=== PATIENT | female | born 1960 | race Caucasian/White ===

== ENCOUNTER 2016-10-08 08:25 | Emergency (ER) | payer OTHER ==
[~2016-10-08] VITALS: Ht 160 cm; Wt 63.5 kg
--- NOTE | 2016-10-08 08:25 | NUR ---
Patient was BIBA and taken to bed 03 via gurney per EMS.
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
[2016-10-08 08:29] VITALS: BP 155/86
--- NOTE | 2016-10-08 08:32 | NUR ---
PT. NOT GOOD HISTORIAN, UNABLE TO RECALL ANY MEDS
--- NOTE | 2016-10-08 08:56 | NUR ---
Dr. Wall evaluating patient at bedside.
--- NOTE | 2016-10-08 08:57 | NUR ---
URINE DIPSTICK RELAYED TO DR WALDROP
--- NOTE | 2016-10-08 09:13 | NUR ---
PT WENT TO CT SCAN,ACCOMPANIED BY CONTACT MANAGER.
--- NOTE | 2016-10-08 09:20 | NUR ---
Patient back from CT via [facility].
--- NOTE | 2016-10-08 09:48 | NUR ---
PT LYING ON BED COMFORTABLY;NO ACUTE DISTRESS NOTED AT THIS TIME;WILL CONTINUE TO MONITOR PT.
--- NOTE | 2016-10-08 10:26 | NUR ---
PT ATE 100% OF HER BREAKFAST.NO ACUTE DIDTRESS NOTED;WILL CONTINUE TO MONITOR PT.
--- NOTE | 2016-10-08 10:54 | NUR ---
Patient discharged with v/s stable. Written and verbal after care instructions given and explained. Patient alert, oriented and verbalized understanding of instructions. Ambulatory with steady gait. All questions addressed prior to discharge. ID band removed. Patient advised to follow up with PMD. Rx of NORCO AND AUGMENTIN given. Patient educated on indication of medication including possible reaction and side effects. Opportunity to ask questions provided and answered.REFERRAL PAPERS GIVEN TO PT.ADVISED PT TO TAKE AUGMENTIN W/FOOD AND TAKE IT RELIGIOUSLY.
[2016-10-08 10:56] VITALS: BP 142/82
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
--- NOTE | 2016-10-08 11:51 | NUR ---
PT SAFELY ESCORTED TO LOBBY BY CORNELIA PATTERSON.PT WAS PICKED UP BY DAUGHTER CRYSTAL.PT IS IN STABLE CONDITION UPON DISCHARGED.
== END 2016-10-08 10:54 | disposition home or self-care (01) ==
LOC: MED 08:26
DX: S02.31XA Fracture of orbital floor, right side, initial encounter for closed fracture (principal); S05.31XA Ocular laceration without prolapse or loss of intraocular tissue, right eye, initial encounter; F20.9 Schizophrenia, unspecified; Y04.2XXA Assault by strike against or bumped into by another person, initial encounter; Y93.89 Activity, other specified; Y92.89 Other specified places as the place of occurrence of the external cause; Y99.8 Other external cause status; Z88.0 Allergy status to penicillin

== ENCOUNTER 2017-10-07 08:22 | Emergency (ER) | payer OTHER ==
[~2017-10-07] VITALS: Ht 170.2 cm; Wt 59.0 kg
--- NOTE | 2017-10-07 08:23 | NUR ---
PT BIBA AMBULANCE
[2017-10-07 08:24] VITALS: BP 141/87
--- NOTE | 2017-10-07 08:25 | NUR ---
PT PLACED IN BED 3
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
--- NOTE | 2017-10-07 08:46 | NUR ---
DR BUSTAMANTE EVALUATING AAO PT AT BEDSIDE
[2017-10-07] MEDS ORDERED: NACL 0.9% 1,000 ML IV SCH ×2 (09:08→11:08)
[2017-10-07] MEDS ORDERED: MORPHINE SULFATE 4 MG/ML SYR IVP ONE ×3 (09:10→11:00)
[2017-10-07] MEDS ORDERED: ONDANSETRON 4 MG/2 ML VIAL IVP ONE (09:10)
--- NOTE | 2017-10-07 09:15 | NUR ---
PT TAKEN FOR XRAY
--- NOTE | 2017-10-07 09:17 | NUR ---
[facility]
[2017-10-07 09:36] LABS: RED BLOOD CELL COUNT(AUTO) 3.73 MIL/uL (4.20-5.40); WHITE BLOOD COUNT (AUTO) 7.2 K/uL (4.8-10.8)
[2017-10-07 09:37] LABS: HEMATOCRIT 32.2 % (36-48); HEMOGLOBIN 10.6 g/dL (12.0-16.0); LYMPHOCYTES % (AUTO) 25.9 % (20.5-51.1); MEAN CORPUSCULAR HEMOGLOBIN 28 pg (27-31); MEAN CORPUSCULAR HGB CONC 33 g/dL (33-37); MEAN CORPUSCULAR VOLUME 86 fL (80-94); NEUTROPHILS % (AUTO) 63.1 % (42.2-75.2); PLATELET COUNT (AUTO) 352 K/uL (140-450); RED CELL DISTRIBUTION WIDTH 16.1 % (11.6-13.7)
[2017-10-07 09:38] LABS: BASOPHILS % (AUTO) 0.7 % (0.0-2.0); EOSINOPHILS # (AUTO) 0.1 K/uL (0-0.4); EOSINOPHILS % (AUTO) 1.7 % (0.0-4.0); LYMPHOCYTES # (AUTO) 1.9 K/uL (2.5-16.5); MONOCYTES # (AUTO) 0.6 K/uL (0.8-1.0); MONOCYTES % (AUTO) 8.6 % (1.7-9.3); NEUTROPHILS # (AUTO) 4.5 K/uL (1.8-7.7)
[2017-10-07 09:42] LABS: ANION GAP 15.7 (8-16); CARBON DIOXIDE 26.8 mmol/L (21-32); CREATININE 0.5 mg/dL (0.6-1.3); POTASSIUM 3.5 mmol/L (3.5-5.1)
--- NOTE | 2017-10-07 09:47 | NUR ---
PT RETURNED FROM XRAY, REFUSED SCANS ON ACCOUNT OF WANTING TO BE "MORE NUMB"
[2017-10-07 09:48] LABS: ALBUMIN 3.6 g/dL (3.4-5.0); TOTAL BILIRUBIN 0.3 mg/dL (0.0-1.0)
--- NOTE | 2017-10-07 09:56 | NUR ---
4MG MORPHINE GIVEN IV RT HAND 22G PER VERBAL ORDER BY DR BUSTAMANTE
--- NOTE | 2017-10-07 10:30 | NUR ---
PT TAKEN TO XRAY AGAIN
--- NOTE | 2017-10-07 10:47 | NUR ---
PT RETURNED FROM X RAY
--- NOTE | 2017-10-07 11:03 | NUR ---
TALK TO TALI AT [facility] FOR PT'S CONDITION AND POSSIBLE SURGERY
[2017-10-07] MEDS ORDERED: ONDANSETRON 4 MG/2 ML VIAL IM/IVP PRN (11:10)
[2017-10-07] MEDS ORDERED: DOCUSATE SODIUM 100 MG GELCAP PO PRN (11:10)
[2017-10-07] MEDS ORDERED: ACETAMINOPHEN 325 MG TAB PO PRN (11:10)
[2017-10-07] MEDS ORDERED: KETOROLAC 30 MG/ML VIAL IVP SCH (11:30)
--- NOTE | 2017-10-07 11:32 | NUR ---
VELARDE CATH INSERTED BY CORNELIA HEWITT, 1L URINE EMPTIED
[2017-10-07 11:40] LABS: PROTHROMBIN TIME 10.2 secs (10.8-13.4)
--- NOTE | 2017-10-07 11:54 | NUR ---
TALK TO PT'S PAUT ENE MCLAIN REGARDING PT BEING ADMITTED
[2017-10-07 12:06] LABS: AMYLASE 35 U/L (25-115); CHOL/HDL RATIO 2.5 (1-4.5); FREE T4 (FREE THYROXINE) 1.05 ng/dL (0.76-1.46); HDL CHOLESTEROL 62 mg/dL (40-60); LDL (CALC) 85 mg/dL (60-100); LIPASE 59 U/L (73-393); MAGNESIUM 1.6 mg/dL (1.8-2.4); PHOSPHORUS 2.7 mg/dL (2.5-4.9); THYROID STIMULATING HORMONE 2.94 uIU/mL (0.34-3.74); TRIGLYCERIDES 43 mg/dL (30-150)
[2017-10-07 13:05] LABS: LACTATE DEHYDROGENASE 207 U/L (81-234)
--- NOTE | 2017-10-07 14:07 | NUR ---
STILL AWAITING ADMIT/TRANSFER ORDERS
--- NOTE | 2017-10-07 15:56 | NUR ---
PT SLEEPING COMFORTABLY AT THIS TIME, VSS, STILL WAITING FOR TRANSFER ORDERS
--- NOTE | 2017-10-07 17:04 | NUR ---
STILL WAITING FOR PLACEMENT/TRANSFER ORDER TO [facility] BY DR ZALDIVAR
--- NOTE | 2017-10-07 17:08 | NUR ---
PT SLEEPING COMFORTABLY AT THIS TIME; NO ACUTE DISTRESS NOTED
[2017-10-07] MEDS ORDERED: NACL 0.9% 1,000 ML IV ONE (17:55)
--- NOTE | 2017-10-07 18:12 | NUR ---
Pt report given to [facility]. Transfer of care at this time.Patient Tranfers to outside Facility Physician: DR TRAVIS PAREDES Location: [facility]
--- NOTE | 2017-10-07 18:13 | NUR ---
PT'S DAUTHER RAYNE BHAKTA CONTACTED BY [facility] REGARDING PT TO BE TRANSFERRED TO [facility]
[2017-10-07 18:32] LABS: APPEARANCE,URINE CLEAR (CLEAR); BILIRUBIN,URINE NEGATIVE (NEGATIVE); BLOOD, URINE TRACE-I (NEGATIVE); COLOR,URINE YELLOW (YELLOW); LEUKOCYTE ESTERASE ,URINE NEGATIVE (NEGATIVE); NITRITE, URINE NEGATIVE (NEGATIVE); UGLUCOSE NEGATIVE (NEGATIVE)
[2017-10-07 19:20] VITALS: BP 128/71
--- NOTE | 2017-10-07 19:20 | NUR ---
Patient to be transferred to [facility]. Is being transferred due to need higher level of care. Receiving facility has accepting physician and available space. ER physician has signed transfer form. Patient or responsible alliance party has agreed to transfer and signed form. Patient belongings inventoried and will be sent with patient. Copy of nursing notes, lab reports, EKG, Physicians Orders and X-rays to be sent with patient. Report called to [facility] at receiving facility. Report given to WIL Anderson. All accompanying documentation given to WIL
--- NOTE | 2017-10-07 19:22 | NUR ---
PT TAKEN BY [facility] TO [facility]
--- NOTE | 2017-10-07 19:22 | NUR ---
FREDI COCHRAN; 1921 END TIME FOR 0.9% NS 150ML TOTAL NS GIVEN BEFORE DISCHARGE/TRANSPORTED TO [facility]
[2017-10-08 15:08] LABS: T4 (THYROXINE) 6.8 ug/dL (4.5-12.0)
== END 2017-10-07 19:22 | disposition short-term general hospital (02) ==
LOC: MED 08:22
DX: S72.002A Fracture of unspecified part of neck of left femur, initial encounter for closed fracture (principal); F17.210 Nicotine dependence, cigarettes, uncomplicated; F12.10 Cannabis abuse, uncomplicated; W18.39XA Other fall on same level, initial encounter; Y93.89 Activity, other specified; Y92.89 Other specified places as the place of occurrence of the external cause; Y99.8 Other external cause status; Z71.6 Tobacco abuse counseling
CPT/HCPCS: 36415; 51702; 71045; 72170; 73502; 73552; 80053; 80061; 81003; 82150; 82550; 83036; 83615; 83690; 83735; 83880; 84100; 84436; 84439; 84443; 84479; 85025; 85610; 85730; 96361; 96374; 96375; 96376; 99285; G0482; J2270; J2405; J7030